=== PATIENT | male | born 1955 | race American Indian/Alaskan Native ===

== ENCOUNTER 2022-02-06 12:22 | Emergency (ER) | payer MEDICARE ==
--- NOTE | 2022-02-06 13:34 | XRay Report ---
CHEST 2 VIEWS INDICATION / CLINICAL INFORMATION: Chest Pain. COMPARISON: None available. FINDINGS: SUPPORT DEVICES: None. HEART / MEDIASTINUM: The heart size and pulmonary vasculature are normal. The aorta is mildly tortuou s without aneurysm. LUNGS / PLEURA: No significant pulmonary or pleural abnormality. No pneumothorax. ADDITIONAL FINDINGS: No significant additional findings. IMPRESSION: No acute findings. Signer Name: Chris Navarrete MD Signed: 02/06/2022 1:30 PM Workstation Name: [id number]
[2022-02-06 15:33] LABS: Basophils % (Auto) 0.8 % (0.0-1.8); Eosinophils # (Auto) 0.6 K/mm3 (0.0-0.4); Eosinophils % (Auto) 13.2 % (0.0-4.3); Hematocrit 41.3 % (35.5-45.6); Hemoglobin 13.7 gm/dl (11.8-15.2); Lymphocytes # (Auto) 1.9 K/mm3 (1.2-5.4); Mean Corpuscular HGB Conc 33 % (32-34); Mean Corpuscular Volume 90 fl (84-94); Monocytes # (Auto) 0.4 K/mm3 (0.0-0.8); Monocytes % (Auto) 8.7 % (0.0-7.3); Platelet Count 151 K/mm3 (140-440); Red Cell Distribution Width 13.7 % (13.2-15.2)
[2022-02-06 15:41] LABS: Alanine Aminotransferase 14 units/L (7-56); Albumin 4.3 g/dL (3.9-5); BUN/Creatinine Ratio 16; Blood Urea Nitrogen 14 mg/dL (9-20); Calcium 9.4 mg/dL (8.4-10.2); Hemolysis Index 30
--- NOTE | 2022-02-06 19:24 | Emergency Department Report ---
HPI - General Chief Complaint: Chest Pain PUI?: No Time Seen by Provider: 02/06/22 15:02 - HPI HPI: 66-year-old male with multiple medical comorbidities sent from [facility] for chest pain. Patient states he had sharp chest pain at approximately 7 AM this morning but states it resolved. He states that it has not returned again. No nausea vomiting fevers or chills. No cough or URI symptoms. No falls or chest wall trauma. Pain currently 0 out of 10. ED Past Medical Hx - Past Medical History Previous Medical History?: Yes ED Review of Systems ROS: Stated complaint: CHEST PAIN Other details as noted in HPI Remainder of ROS neg. Comment: All other systems reviewed and negative Physical Exam - Physical Exam Vital Signs: Vital Signs 02/06/22 02/06/22 02/06/22 12:32 12:52 15:17 Temperature 98.9 F Pulse Rate 60 53 L Respiratory 14 Rate Blood Pressure Blood Pressure 156/80 [Left] O2 Sat by Pulse 98 99 Oximetry 02/06/22 16:00 Temperature Pulse Rate 47 L Respiratory 16 Rate Blood Pressure 172/94 Blood Pressure [Left] O2 Sat by Pulse 98 Oximetry General: Gen: pt is well appearing, no acute distress HEENT: Normocephalic atraumatic pupils equally round and reactive to light extraocular muscles intact sclera anicteric Neck: Full range of motion, no midline spinal tenderness palpation, no JVD, no carotid bruits, no nuchal rigidity CVS: S1-S2 regular rate and rhythm with no gallops rubs or murmurs, chest wall nontender Pulmonary: Clear to auscultation bilaterally, no wheezes rales or rhonchi Abdomen: Soft nondistended nontender no guarding or rebound tenderness, no palpable deformities or step-offs, normal active bowel sounds, no hepatosplenomegaly, no pulsatile masses : Deferred Extremities: No cyanosis no clubbing no edema, intact distal peripheral pulses, Integumentary: Skin normal, no petechia no purpura no abscess no lacerations no evidence of trauma no evidence of infection Neuro: Patient is awake alert and oriented to person place time situation, mentating well, cranial nerves II through XII intact, no focal neurodeficits, sensation grossly tact Psych: Calm cooperative, mood affect normal ED Course Vital Signs 02/06/22 02/06/22 02/06/22 12:32 12:52 15:17 Temperature 98.9 F Pulse Rate 60 53 L Respiratory 14 Rate Blood Pressure Blood Pressure 156/80 [Left] O2 Sat by Pulse 98 99 Oximetry 02/06/22 16:00 Temperature Pulse Rate 47 L Respiratory 16 Rate Blood Pressure 172/94 Blood Pressure [Left] O2 Sat by Pulse 98 Oximetry - Reevaluation(s) Reevaluation #1: 02/06/22 19:23 pt reassessed. Ventricular rate 53 bpm. P waves are present and proceed every QRS complex. Intervals normal. No ST segment depressions elevations. No T wave flattening or inversions. No ectopy. No arrhythmia. Sinus bradycardia. No prior EKG available for comparison. ED Medical Decision Making - Lab Data Result diagrams: 02/06/22 12:37 02/06/22 12:37 - EKG Data -: EKG Interpreted by Or EKG shows normal: sinus rhythm Rate: bradycardia - EKG Data When compared to previous EKG there are: previous EKG unavailable Interpretation: no acute changes - Radiology Data Radiology results: report reviewed - Medical Decision Making 66-year-old male sent from [facility] for evaluation of chest pain that resolved several prior to arrival. Vital signs stable. Patient noted to be bradycardic here but there is no evidence of heart block. He was ambulated here in his resting heart rate increased spontaneously to 68 to 70 bpm. Patient is also on a beta-johanne which could likely be the cause of the bradycardia. Serial cardiac enzymes unremarkable. Chest x-ray normal. Heart score is 3. Wells score is 0. Patient is remained in symptomatic care throughout my multiple reassessments of him. No further emergent work-up warranted. Stable for discharge home Critical care attestation.: If time is entered above; I have spent that time in minutes in the direct care of this critically ill patient, excluding procedure time. ED Disposition Disposition: 01 HOME / SELF CARE / HOMELESS Is pt being admited?: No Does the pt Need Aspirin: No Condition: Stable Instructions: Nonspecific Chest Pain, Adult Additional Instructions: Follow up with your primary care doctor for reassessment . This is very important. Return to the nearest emergency department as soon as possible if you develop severe or worsening pain, dizziness, vomiting, lightheadness , or if any other new worrisome symptoms develop. Referrals: [facility] [Other] - 3-5 Days
[2022-02-07 02:24] VITALS: BP 153/84
--- NOTE | 2022-02-09 12:11 | Electrocardiograph Report ---
[facility] Test Date: 2022-02-06 Test Time: 12:52:21 Pat Name: SANDOR CABRERA Department: Room: Gender: M [employer] Operator: [id number] : [id number] Requested By: MERLENE GARCIA Order Number: [id number] Reading MD: Sylvester Rushing Measurements Intervals [place] Rate: 53 P: 28 GA: 151 QRS: -29 QRSD: 79 T: 37 QT: 457 QTc: 428 Interpretive Statements Sinus bradycardia ST elevation, consider inferior injury No previous ECG available for comparison no reciprocal changes Electronically Signed On 02-09-2022 9:11:45 PDT by Sylvester Rushing
== END 2022-02-07 02:20 | disposition home or self-care (01) ==
LOC: ED 12:22
DX: R07.9 Chest pain, unspecified (principal)
CPT/HCPCS: 36415; 71046; 80053; 84484; 85025; 93005; 99284